=== PATIENT | male | born 1965 | race African-American/Black ===

== ENCOUNTER 2019-04-27 11:24 | Day surgery (SDC) | payer BC, OTHER ==
[2019-04-20 10:08] LABS: ABSOLUTE EOSINOPHILS # (AUTO) 0.1 10^3/uL (0.0-0.6); ABSOLUTE LYMPHOCYTES (AUTO) 1.8 10^3/uL (0.5-4.7); ABSOLUTE MONOCYTES (AUTO) 0.4 10^3/uL (0.1-1.4); BASOPHILS % (AUTO) 0.9 % (0-2); HEMATOCRIT 42.9 % (37.9-51.0); HEMOGLOBIN 14.5 g/dL (13.5-17.0); LYMPHOCYTES % (AUTO) 42.8 % (13-45); MEAN CORPUSCULAR HEMOGLOBIN 28.2 pg (27.0-33.4); MEAN CORPUSCULAR HGB CONC 33.7 g/dL (32.0-36.0); MEAN CORPUSCULAR VOLUME 84 fl (80-97); PLATELET COUNT 212 10^3/uL (150-450); RED BLOOD COUNT 5.14 10^6/uL (4.35-5.55); RED CELL DISTRIBUTION WIDTH 14.9 % (11.5-14.0); SEGMENTED NEUTROPHILS % (AUTO) 45.3 % (42-78); TOTAL CELLS COUNTED % (AUTO) 100 %; WHITE BLOOD COUNT 4.3 10^3/uL (4.0-10.5)
[2019-04-20 10:26] LABS: ANION GAP 11 (5-19); BLOOD UREA NITROGEN 11 mg/dL (7-20); CALCIUM 9.9 mg/dL (8.4-10.2); CARBON DIOXIDE 30 mmol/L (22-30); CHLORIDE 99 mmol/L (98-107); GLUCOSE 311 mg/dL (75-110)
--- NOTE | 2019-04-20 23:50 | EKG REPORT ---
SEVERITY:- BORDERLINE ECG - SINUS RHYTHM BORDERLINE T ABNORMALITIES, INFERIOR LEADS : Confirmed by: Kelsi Guzmán MD 20-Apr-2019 23:49:23
[~2019-04-27 11:24] MED LIST: CLINDAMYCIN 600 MG/D5W RTU 600 MG/50 ML RTUPB IV PRN; DEXAMETHASONE SOD PHOSPHATE INJ 4 MG/1 ML VIAL ONE; FENTANYL CITRATE INJ/PF 100 MCG/2 ML AMPUL ONE; FENTANYL CITRATE INJ/PF 250 MCG/5 ML AMPULE ONE; LACTATED RINGERS 1000 ML IV PRN; LIDOCAINE 0.5% INJ-PF (5 MG/ML) 50 ML SDV SUBCUT PRN; MIDAZOLAM 2 MG/2 ML INJ ONE; ONDANSETRON HCL INJ/PF 4 MG/2 ML SDV ONE; PROPOFOL INJ 200 MG/20 ML VIAL IV ONE
[2019-04-27] MEDS ORDERED: CLINDAMYCIN 600 MG/D5W RTU 600 MG/50 ML RTUPB IV ONE (12:18)
[2019-04-27] MEDS ORDERED: FAMOTIDINE 20 MG TABLET ONE (12:18)
[2019-04-27] MEDS ORDERED: MIDAZOLAM 2 MG/2 ML INJ ONE (12:18)
[2019-04-27] MEDS ORDERED: FAMOTIDINE INJ/PF 20 MG/2 ML SDV IV ONE ×2 (12:19→12:30)
[2019-04-27] MEDS ORDERED: RINGERS SOLUTION,LACTATED 1,000 ML IV ONE (12:30)
[2019-04-27] MEDS ORDERED: MIDAZOLAM 2 MG/2 ML INJ IV ONE (12:30)
[2019-04-27] MEDS ORDERED: SUCCINYLCHOLINE CHLORIDE INJ 200 MG/10 ML VIAL ONE (14:14)
[2019-04-27] MEDS ORDERED: ONDANSETRON HCL INJ/PF 4 MG/2 ML SDV IV PRN (14:42)
[2019-04-27] MEDS ORDERED: FENTANYL CITRATE INJ/PF 100 MCG/2 ML AMPUL IV PRN ×3 (14:42)
[2019-04-27] MEDS ORDERED: MEPERIDINE HCL/PF INJ 25 MG/1 ML DISP.SYRIN IV PRN (14:42)
[2019-04-27] MEDS ORDERED: PROMETHAZINE HCL INJ 25 MG/1 ML VIAL IV PRN ×2 (14:42)
[2019-04-27] MEDS ORDERED: DIPHENHYDRAMINE HCL 50 MG/ML VIAL IV PRN (14:42)
[2019-04-27] MEDS ORDERED: BUPIVACAINE HCL 0.5 % INJ/PF 30 ML SDV ONE (14:53)
[2019-04-27] MEDS ORDERED: FENTANYL CITRATE INJ/PF 100 MCG/2 ML AMPUL ONE (17:41)
--- NOTE | 2019-04-27 17:45 | Operative Report ---
Operative Report DATE OF SURGERY: 04/27/19 PREOPERATIVE DIAGNOSIS: Left ring finger proximal phalanx, foreign body left khalil nd POSTOPERATIVE DIAGNOSIS: Same OPERATION: 1. Corrective osteotomy left ring finger proximal phalanx with open reduction internal fixation. 2. Excision foreign body deep tissue left hand SURGEON: JULIO CESAR WALSH ANESTHESIA: GA COMPLICATIONS: None ESTIMATED BLOOD LOSS: Minimal PROCEDURE: Indication for above procedure: 54-year-old male sustained a fracture of his proximal. Treatment was attempted with nonoperative management including a brace unfortunately patient developed malunion and limited motion of the digit. Upon referral we discussed treatment options including operative versus nonoperative intervention given the malunion and limited motion decision was made to proceed with operative treatment. Procedure In Detail: Patient was seen and evaluated in the preoperative holding area. The LEFT upper extremity was initialized and marked. Patient received 2g of Ancef IV for bacterial prophylaxis. Patient was taken back to the operative room where transferred to the operative table and placed under general anesthesia. Once they were adequately anesthetized a nonsterile tourniquet was placed on the upper extremity. A surgical team debriefing was performed ensuring all instrumentation was available, the surgical procedure was discussed with possible concerns reviewed. The upper extremity was prepped with chlorhexidine and alcohol and draped in a sterile fashion. A timeout was done identifying correct patient, procedure and extremity everyone in attendance agree with this and verbalized no concerns. The extremity was exsanguinated the tourniquet was inflated to 250 mmHg. Longitudinal skin incision was made palmarly at the level of the A1 lissa. Blunt dissection was performed, foreign body was located adjacent to the A1 lissa.. Foreign body was then isolated and excised from surrounding soft tissues. Wound was copiously irrigated with normal saline. Skin was closed with interrupted 4-0 nylon suture. Mid lateral skin incision was made along the ring finger with extension over the ulnar aspect of the MCP joint. Blunt dissection was performed. Triangular ligament was then excised and elevated there is significant flexor adhesions and extensor adhesions along the fracture site. Extensor and flexor tenolysis was performed with fair elevator to free the tendons from the callus. Once isolated the fracture was identified there was significant callus formation and near complete healing of the fracture in a malunited position. Osteoclasis was performed to free up the proximal and distal aspect. Small osteotome was placed through the oblique fracture line. Once both portions were mobilized any remaining callus was excised. All bone that was removed was placed on the back table for possible later harvest. Under direct visualization the fracture was then reduced correcting patient's lateral rotation and flexion deformity. This was held together with K wires. Initial attempt at interfragmentary screw was not successful and thus proceeded with placement of a plate. Small portion of the collateral ligament was elevated to place the plate in appropriate position. Plate was contoured on the back table then secured to the proximal distal fragments with a Winnie wire. C-arm fluoroscopy was obtained confirming acceptable plate placement and adequate reduction of the fracture. Once pleased with position proceeded with fixation. Fixation was obtained distally with bicortical fixation utilizing 1.7 mm bicortical screw, 1.9 mm emergency screw was also placed. Proximal fragment was then fixated with bicortical screw. C-arm fluoroscopy once again obtained to confirm adequate reduction of the fracture. Fixation was completed with additional bicortical screw. Previous emergency screw was switched out for the appropriate size locking screw. Additional locking screw was placed within the distal fragment. Fixation was then completed proximally with 2 additional locking screws and bicortical screw. Final C-arm fluoroscopy was obtained dem onstrating acceptable alignment on AP and lateral view. There is no evidence of mild rotation with tenodesis or forearm squeeze. Tourniquet was deflated. Any peripheral bleeding was controlled with bipolar cautery until the wound was dry. Wound was copiously irrigated with normal saline. Osteotomy site was impacted with previous bone. Skin was closed with interrupted 4-0 nylon suture. Local block was performed with 20 cc of 0.5% bupivacaine without epinephrine. Wound was dressed Xeroform 4 x 4's patient was placed in a ulnar gutter splint with the digits in the intrinsic plus position. Sponge counts, instrument counts, needle counts were correct. Patient was then awoken from anesthesia. Transferred from the operating room table to the operating room stretcher. There was no intraoperative complications patient tolerated procedure well stable to PACU. Postop plan: We will set the patient up to begin occupational therapy 10 days postop to focus on active and passive range of motion.
--- NOTE | 2019-04-27 17:46 | Discharge Summary ---
Discharge Summary (SDC) - Discharge Final Diagnosis: Ring finger proximal phalanx malunion, foreign body left hand Date of Surgery: 04/27/19 Discharge Date: 04/27/19 Condition: Good Treatment or Instructions: Schedule Follow Up w/ Dr. Edward Mccullough @ [facility] to be seen in 10-14 days or as scheduled [place]: [place]: [place]: Ice and elevate Keep splint clean/dry/intact, do not remove. If your fingers become numb please unwrap the Lrary wrap but leave the splint in place, if the sensation does not return within 30 minutes please return to the emergency department. Please use ibuprofen (Motrin or Advil) 600-800 mg every 8 hours as needed for pain or fever DO NOT TAKE w/ TORADOL may use once TORADOL complete. You may also use acetaminophen (Tylenol) 1000 mg every 4-6 hours as needed for pain or fever. Please be aware that many medications contain acetaminophen, do not exceed a total of 1000 mg of acetaminophen every 6 hours. If ibuprofen and acetaminophen are not sufficient for your pain you may take the Percocet/Shapleigh. Please be aware that the Percocet/Shapleigh does contain Tylenol. Stool softener of choice when on pain medication. USE OF [id number]-BUV-IMPQQGA IBUPROFEN: Ibuprofen (Advil, Nuprin, Medipren, Motrin IB) is a medication for fever and pain control. In addition, it has anti- inflammatory effects which may be beneficial, especially in the treatment of injuries. It's best to take ibuprofen with food. Persons with ulcer disease or allergy to aspirin should notify their physician of this before taking ibuprofen. Ibuprofen can be given every four to six hours, for a total of four doses daily. Age Pain or fever dose Antiinflammatory dose 6-8 yr 200 mg (1 tab) 200 mg (1 tab) 9-11 yr 200 mg (1 tab) 200-400 mg (1-2 tab) 11-14 yr 200-400 mg (1-2 tab) 400 mg (2 tab) 15-adult 400 mg (2 tab) 600 mg (3 tab) ORAL NARCOTIC MEDICATION: You have been given a prescription for pain control. This medication is a narcotic. It's best taken with food, as nausea can result if taken on an empty stomach. Don't operate machinery or drive within six hours of taking this medication. Do not combine this medicine with alcohol, or with any medication which can cause sedation (such as cold tablets or sleeping pills) unless you get permission from the physician. Narcotics tend to cause constipation. If possible, drink plenty of fluids and eat a diet high in fiber and fruits. Please be aware that prescription narcotics also have the potential for abuse. People become addicted to these medications because of the general sense of wellbeing that they induce. This feeling along with a significant reduction in tension, anxiety, and aggression provides a stimulating seductive quality to these drugs. Once your pain is under control, we encourage you to discard your unused narcotics. Prescriptions: Oxycodone HCl/Acetaminophen [Percocet 5-325 mg Tablet] 1 tab PO Q6 PRN #25 tab PRN Reason: Referrals: KEO LORA MD [Primary Care Provider] - Discharge Diet: As Tolerated Respiratory Treatments at Home: Deep Breathing/Coughing Discharge Activity: No Lifting Over 10 Pounds, No Lifting/Push/Pulling Report the Following to Your Physician Immediately: Fever over 101 Degrees, Unusual Bleeding, Redness, Swelling, Warmth, Increased Soreness
[2019-04-27 19:30] VITALS: BP 150/75
--- NOTE | 2019-04-28 08:19 | RADIOLOGY REPORT (SQ) ---
EXAM DESCRIPTION: NO CHG FLUORO; FINGER LEFT COMPLETED DATE/TIME: 04/27/2019 8:32 pm REASON FOR STUDY: ORIF L 4TH DIGIT S62.615P DISP FX OF PROX PHALANX OF L RNG FNGR, 7THP S60.552A S UPERFICIAL FOREIGN BODY OF LEFT HAND, INITIAL ENCO COMPARISON: None. FLUOROSCOPY TIME: 2 min 17 secs 6 images saved to PACS TECHNIQUE: Intra-operative images acquired during surgical procedure to evaluate progress. NUMBER OF IMAGES: 6 LIMITATIONS: None. FINDINGS: Intraoperative fluoroscopic images obtained to evaluate surgical progress. Evidence of pl ate and screw fixation of the 4th proximal phalanx. Please see operative report for detailed descrip tion. IMPRESSION: IMAGE(S) OBTAINED DURING PROCEDURE. COMMENT: Quality ID 145: Final reports for procedures using fluoroscopy that document radiation exp osure indices, or exposure time and number of fluorographic images (if radiation exposure indices are not available) Please consult full operative report of the attending physician for description of the procedure. TECHNICAL DOCUMENTATION: JOB ID: [id number] [employer]- All Rights Reserved Reading location - IP/workstation name: [email or web address]
--- NOTE | 2019-04-28 08:19 | RADIOLOGY REPORT (SQ) ---
EXAM DESCRIPTION: NO CHG FLUORO; FINGER LEFT COMPLETED DATE/TIME: 04/27/2019 8:32 pm REASON FOR STUDY: ORIF L 4TH DIGIT S62.615P DISP FX OF PROX PHALANX OF L RNG FNGR, 7THP S60.552A S UPERFICIAL FOREIGN BODY OF LEFT HAND, INITIAL ENCO COMPARISON: None. FLUOROSCOPY TIME: 2 min 17 secs 6 images saved to PACS TECHNIQUE: Intra-operative images acquired during surgical procedure to evaluate progress. NUMBER OF IMAGES: 6 LIMITATIONS: None. FINDINGS: Intraoperative fluoroscopic images obtained to evaluate surgical progress. Evidence of pl ate and screw fixation of the 4th proximal phalanx. Please see operative report for detailed descrip tion. IMPRESSION: IMAGE(S) OBTAINED DURING PROCEDURE. COMMENT: Quality ID 145: Final reports for procedures using fluoroscopy that document radiation exp osure indices, or exposure time and number of fluorographic images (if radiation exposure indices are not available) Please consult full operative report of the attending physician for description of the procedure. TECHNICAL DOCUMENTATION: JOB ID: [id number] [employer]- All Rights Reserved Reading location - IP/workstation name: [email or web address]
== END 2019-04-27 19:20 | disposition home or self-care (01) ==
LOC: OROUT 11:24
PROVIDERS: ATTEND Orthopaedic Surgery
DX: S62.615P Displaced fracture of proximal phalanx of left ring finger, subsequent encounter for fracture with malunion (principal); X58.XXXD Exposure to other specified factors, subsequent encounter; S60.552A Superficial foreign body of left hand, initial encounter; X58.XXXA Exposure to other specified factors, initial encounter; M79.645 Pain in left finger(s); G47.33 Obstructive sleep apnea (adult) (pediatric)
CPT/HCPCS: 93005; 36415; 85025; 80048; 73140; 93010; 01830; 26735; 20525; C1713 ×13; J2250; J3490; J1100; J3010 ×2; J0330; J2405; J2704; S0028

== ENCOUNTER 2020-04-18 10:12 | Day surgery (SDC) | payer BC, OTHER ==
[2020-04-13 12:55] LABS: HEMATOCRIT 41.8 % (37.9-51.0); HEMOGLOBIN 14.5 g/dL (13.5-17.0); MEAN CORPUSCULAR HEMOGLOBIN 28.5 pg (27.0-33.4); MEAN CORPUSCULAR HGB CONC 34.8 g/dL (32.0-36.0); MEAN CORPUSCULAR VOLUME 82 fl (80-97); PLATELET COUNT 100 10^3/uL (150-450); RED CELL DISTRIBUTION WIDTH 14.5 % (11.5-14.0); WHITE BLOOD COUNT 4.7 10^3/uL (4.0-10.5)
[2020-04-13 12:59] LABS: APPEARANCE,URINE CLEAR; BILIRUBIN,URINE NEGATIVE (NEGATIVE); COLOR,URINE STRAW; GLUCOSE, URINE >=500 mg/dL (NEGATIVE); KETONES,URINE NEGATIVE (NEGATIVE); LEUKOCYTE ESTERASE,URINE NEGATIVE (NEGATIVE); NITRITE,URINE NEGATIVE (NEGATIVE); PROTEIN,URINE NEGATIVE (NEGATIVE); URINE SPECIFIC GRAVITY 1.017; UROBILINOGEN,URINE NEGATIVE mg/dL (<2.0)
[2020-04-13 13:15] LABS: ANION GAP 11 (5-19); BLOOD UREA NITROGEN 13 mg/dL (7-20); CALCIUM 10.2 mg/dL (8.4-10.2); CARBON DIOXIDE 28 mmol/L (22-30); CHLORIDE 100 mmol/L (98-107); GLUCOSE 323 mg/dL (75-110); POTASSIUM 4.4 mmol/L (3.6-5.0)
[~2020-04-18 10:12] MED LIST changes: +CEFAZOLIN 2 GM/D5W RTU 2 GM/50 ML RTUPB IV ONE; +CEFAZOLIN 2 GM/D5W RTU 2 GM/50 ML RTUPB IV PRN; -CLINDAMYCIN 600 MG/D5W RTU 600 MG/50 ML RTUPB IV PRN; -FENTANYL CITRATE INJ/PF 250 MCG/5 ML AMPULE ONE; +KETAMINE HCL INJ 500 MG/10 ML VIAL ONE; +KETOROLAC TROMETHAMINE 60 MG/2 ML SDV ONE
[2020-04-18] MEDS ORDERED: LIDOCAINE 1% INJ-PF (10 MG/ML) 30 ML SDV ONE (11:21)
[2020-04-18] MEDS ORDERED: GLYCOPYRROLATE 1 MG/5 ML VIAL ONE (11:37)
[2020-04-18] MEDS ORDERED: MEPERIDINE HCL/PF INJ 25 MG/1 ML DISP.SYRIN IV PRN (12:05)
[2020-04-18] MEDS ORDERED: PROMETHAZINE HCL INJ 25 MG/1 ML VIAL IV PRN ×2 (12:05)
[2020-04-18] MEDS ORDERED: FENTANYL CITRATE INJ/PF 100 MCG/2 ML AMPUL IV PRN ×3 (12:05)
[2020-04-18] MEDS ORDERED: DIPHENHYDRAMINE HCL 50 MG/ML VIAL IV PRN (12:05)
--- NOTE | 2020-04-18 12:55 | Discharge Summary ---
Discharge Summary (SDC) - Discharge Final Diagnosis: Left ring finger contracture/adhesions status post ORIF Date of Surgery: 04/18/20 Discharge Date: 04/18/20 Condition: Good Forms: ASU Anesthesia D/C Instruction, Discharge POC-Surgical Service Treatment or Instructions: Schedule Follow Up w/ Dr. Edward Walsh @ [facility] for Surgery to be seen in 10-14 days or as scheduled [place]: [place]: [place]: May remove dressing on postop day #1 to begin therapy. Ice and elevate May begin finger range of motion attempting to make full fist. Stool softener of choice when on pain medication. USE OF [id number]-UTS-MPNUJPS IBUPROFEN: Ibuprofen (Advil, Nuprin, Medipren, Motrin IB) is a medication for fever and pain control. In addition, it has anti- inflammatory effects which may be beneficial, especially in the treatment of injuries. It's best to take ibuprofen with food. Persons with ulcer disease or allergy to aspirin should notify their physician of this before taking ibuprofen. Ibuprofen can be given every four to six hours, for a total of four doses daily. Age Pain or fever dose Antiinflammatory dose 6-8 yr 200 mg (1 tab) 200 mg (1 tab) 9-11 yr 200 mg (1 tab) 200-400 mg (1-2 tab) 11-14 yr 200-400 mg (1-2 tab) 400 mg (2 tab) 15-adult 400 mg (2 tab) 600 mg (3 tab) ORAL NARCOTIC MEDICATION: You have been given a prescription for pain control. This medication is a narcotic. It's best taken with food, as nausea can result if taken on an empty stomach. Don't operate machinery or drive within six hours of taking this medication. Do not combine this medicine with alcohol, or with any medication which can cause sedation (such as cold tablets or sleeping pills) unless you get permission from the physician. Narcotics tend to cause constipation. If possible, drink plenty of fluids and eat a diet high in fiber and fruits. Please be aware that prescription narcotics also have the potential for abuse. People become addicted to these medications because of the general sense of wellbeing that they induce. This feeling along with a significant reduction in tension, anxiety, and aggression provides a stimulating seductive quality to these drugs. Once your pain is under control, we encourage you to discard your unused narcotics. Prescriptions: Oxycodone HCl/Acetaminophen [Endocet 7.5-325 mg Tablet] 1 each PO Q6 PRN #25 tablet PRN Reason: Ondansetron [Zofran Odt 4 mg Tablet] 4 mg PO Q6 PRN #30 tab.rapdis PRN Reason: Referrals: EDWARD WALSH DO [ACTIVE STAFF] - 05/01/20 10:50 am Discharge Diet: As Tolerated Respiratory Treatments at Home: Deep Breathing/Coughing, Incentive Spirometer Discharge Activity: No Lifting Over 10 Pounds, No Lifting/Push/Pulling Report the Following to Your Physician Immediately: Fever over 101 Degrees, Unusual Bleeding, Redness, Swelling, Warmth, Increased Soreness
[2020-04-18] MEDS ORDERED: MORPHINE SULFATE 10 MG/ML INJ IV PRN (12:59)
[2020-04-18] MEDS ORDERED: ONDANSETRON HCL INJ/PF 4 MG/2 ML SDV IV PRN (12:59)
[2020-04-18] MEDS ORDERED: OXYCODONE-ACETAMINOPHEN 5-325 MG TABLET PO PRN ×2 (12:59→14:42)
--- NOTE | 2020-04-18 12:59 | Operative Report ---
Operative Report DATE OF SURGERY: 04/18/20 PREOPERATIVE DIAGNOSIS: Left ring finger painful retained hardware, PIP joint c ontracture, extensor tendon adhesions POSTOPERATIVE DIAGNOSIS: Same OPERATION: 1. Removal of deep hardware of the ring finger. 2. PIP Capsular Release left ring finger. 3. Extensor tenolysis left ring finger SURGEON: JULIO CESAR WALSH ANESTHESIA: LMAC COMPLICATIONS: None ESTIMATED BLOOD LOSS: Minimal PROCEDURE: Indication for above procedure: 55-year-old male who underwent open reduction to fixation of a proximal phalanx malunion approximate 1 year ago. Patient's wound healed appropriately although continued to have stiffness and contracture. Underwent extensive occupational therapy despite extensive occupational therapy residual flexion contracture and limited motion was noted. He also had pain along the hardware given the fact the fracture completely healed decision was made to proceed with operative inter vention which included removal of hardware of the ring finger with PIP joint contracture release, tenolysis. Risk and benefits were explained patient verbalized understanding consented for surgical procedure. Procedure In Detail: Patient was seen and evaluated in the preoperative holding area. The Left upper extremity was initialized and marked. Patient received 2g of Ancef IV for bacterial prophylaxis. Patient was taken back to the operative room where transferred to the operative table. Once they were adequately anesthetized a nonsterile tourniquet was placed on the upper extremity. A surgical team debriefing was performed ensuring all instrumentation was available, the surgical procedure was discussed with possible concerns reviewed. A digital block was performed utilizing 10 mL of 1% lidocaine without epinephrine. The upper extremity was prepped with chlorhexidine and alcohol and draped in a sterile fashion. A timeout was done identifying correct patient, procedure and extremity everyone in attendance agree with this and verbalized no concerns. The extremity was exsanguinated the tourniquet was inflated to 250 mmHg. Previous skin incision along the ulnar border of the left ring finger was utilized. Blunt dissection was performed. And peripheral veins were coagulated bipolar cautery. Significant scarring was noted of the transverse retinacular ligament and lateral bands to the plate. Via sharp dissection the extensor mechanism was elevated to expose the plate. A total of 8 screws were successfully removed along with the plate. The extensor tendon was then exposed and tenolysis was performed superficial and deep to the extensor tendon. Attachment to the middle phalanx was maintained there is no evidence of extensor tendon disruption. There was significant flexion contracture of the PIP joint. The proper collateral ligament along the ulnar border and proper collateral ligament along the radial border was released. The dorsal capsule was released deep to the extensor tendon in order to expose the joint. Dorsal capsule and volar plate was then released from the dorsal approach successfully achieving full passive motion of the finger at the completion of this. The flexor tendons were then tenolysis proximally and distally at the level of the middle phalanx. Tourniquet was then deflated, patient had normal peripheral perfusion/skin tu rgor.. And peripheral bleeding was controlled with bipolar cautery. Patient was awoken from anesthesia was able to make a full composite fist did continue to have residual 15 degree flexion contracture which was passively correctable. Wound was then copiously irrigated with normal saline. The ulnar collateral ligament was loosely reapproximated with 3-0 Vicryl suture with. Skin was closed with interrupted 4-0 nylon suture. Wound was dressed with Xeroform 4 x 4's and patient was placed in a volar plaster splint maintaining full extension. Sponge counts, instrument counts, needle counts counts were correct. Patient was then awoken from anesthesia. Transferred from the operating room table to the operating room stretcher. There was no intraoperative complications patient tolerated procedure well stable to PACU. Postoperative plan: Patient will follow-up as scheduled for wound check. Patient will begin occupational therapy postop day #1.
[2020-04-18] MEDS ORDERED: ONDANSETRON HCL INJ/PF 4 MG/2 ML SDV ONE (13:03)
[2020-04-18] MEDS ORDERED: OXYCODONE-ACETAMINOPHEN 5-325 MG TABLET ONE (13:05)
--- NOTE | 2020-04-18 15:16 | RADIOLOGY REPORT (SQ) ---
EXAM DESCRIPTION: FINGER LEFT; NO CHG FLUORO IMAGES COMPLETED DATE/TIME: 04/18/2020 12:32 pm REASON FOR STUDY: HARDWARE REMOVAL LEFT FINGER M24.549 CONTRACTURE, UNSPECIFIED HAND COMPARISON: 04/27/2019. FLUOROSCOPY TIME: 3 seconds. 2 images saved to PACS. TECHNIQUE: Intra-operative images acquired during surgical procedure to evaluate progress. NUMBER OF IMAGES: 2 images. LIMITATIONS: None. FINDINGS: Images of the finger acquired during procedure. IMPRESSION: IMAGE(S) OBTAINED DURING PROCEDURE. COMMENT: Quality ID 145: Final reports for procedures using fluoroscopy that document radiation exp osure indices, or exposure time and number of fluorographic images (if radiation exposure indices are not available) Please consult full operative report of the attending physician for description of the procedure. TECHNICAL DOCUMENTATION: JOB ID: [id number] 2010 [employer]- All Rights Reserved Reading location - IP/workstation name: [email or web address]
--- NOTE | 2020-04-18 15:16 | RADIOLOGY REPORT (SQ) ---
EXAM DESCRIPTION: FINGER LEFT; NO CHG FLUORO IMAGES COMPLETED DATE/TIME: 04/18/2020 12:32 pm REASON FOR STUDY: HARDWARE REMOVAL LEFT FINGER M24.549 CONTRACTURE, UNSPECIFIED HAND COMPARISON: 04/27/2019. FLUOROSCOPY TIME: 3 seconds. 2 images saved to PACS. TECHNIQUE: Intra-operative images acquired during surgical procedure to evaluate progress. NUMBER OF IMAGES: 2 images. LIMITATIONS: None. FINDINGS: Images of the finger acquired during procedure. IMPRESSION: IMAGE(S) OBTAINED DURING PROCEDURE. COMMENT: Quality ID 145: Final reports for procedures using fluoroscopy that document radiation exp osure indices, or exposure time and number of fluorographic images (if radiation exposure indices are not available) Please consult full operative report of the attending physician for description of the procedure. TECHNICAL DOCUMENTATION: JOB ID: [id number] 2010 [employer]- All Rights Reserved Reading location - IP/workstation name: [email or web address]
[2020-04-18 15:17] VITALS: BP 123/75
== END 2020-04-18 14:45 | disposition home or self-care (01) ==
LOC: OROUT 10:12
PROVIDERS: ATTEND Orthopaedic Surgery
DX: M24.542 Contracture, left hand (principal); Z47.2 Encounter for removal of internal fixation device; I10 Essential (primary) hypertension; E78.5 Hyperlipidemia, unspecified; Z87.81 Personal history of (healed) traumatic fracture; Z79.899 Other long term (current) drug therapy; Z86.39 Personal history of other endocrine, nutritional and metabolic disease; Z03.818 Encounter for observation for suspected exposure to other biological agents ruled out
CPT/HCPCS: 26445; 26525; 26320; 36415; 82962; 85027; 80048; 81001; 73140; U0003; J2250; J1100; J1885; J3010; J3490 ×2; J2405; J2704; J0690; C9803; 87635